=== PATIENT | male | born 1990 | race Two or more races ===

== ENCOUNTER 2018-11-04 02:52 | Emergency (ER) | payer MEDICAID ==
[~2018-11-04] VITALS: Ht 182.9 cm; Wt 82.1 kg
--- NOTE | 2018-11-04 02:52 | NUR ---
Patient to ER bed 6 to gown for evaluation. Side rails up. Report given to MARGARITA GHOSH.
--- NOTE | 2018-11-04 02:52 | NUR ---
Pt BIB BLS s/p anxiety attack. Pt states that he had a few beers and smoked marijuana to help him calm down. Pt AAOx4, calm and cooperative, even and non-labored respirations, denies c/o C/P or SOB, VSS.
[2018-11-04 02:55] VITALS: BP_SYST 120
--- NOTE | 2018-11-04 03:00 | NUR ---
SACHIN Hammer at bedside examining patient.
[2018-11-04] MEDS: ALPRAZolam 0.25 MG TABLET PO ONE (03:15)
[2018-11-04 04:50] VITALS: BP_SYST 120
== END 2018-11-04 04:50 | disposition home or self-care (01) ==
LOC: SED 02:52
DX: F41.9 Anxiety disorder, unspecified (principal)
CPT/HCPCS: 99283; 99284